=== PATIENT | male | born 1950 | race Caucasian/White ===

== ENCOUNTER 2017-04-14 13:34 | Emergency (ER) | payer OTHER ==
[2017-04-14 13:41] VITALS: BMI 30.7
--- NOTE | 2017-04-14 14:04 | PDOC ---
History of Present Illness - General Chief Complaint: Blood Pressure Problem Stated Complaint: BLOOD PRESSURE PROBLEM Time Seen by Provider: 04/14/17 14:03 - History of Present Illness Initial Comments: 67 year old male with NIDDM, HTN, and GERD presenting with frontal headache, weakness, and elevated blood pressure. States that his pressure was elevated all week to the 150s and he has been experiencing a pain in his eyes and front of his head. He hasn't changed any of his medications and his eye pressure/ pain has been chronic for years. He saw an opthalmologist and did not find any acute pathology. Denies visual symptoms, chest pain, fevers, chills, nausea vomiting, or diarrhea. His PCP is Dr. Phil Rodrigez. 04/14/17 17:04 Past History - Past Medical History Allergies/Adverse Reactions: Allergies Allergy/AdvReac Type Severity Reaction Status Date / Time No Known Allergies Allergy Verified 04/14/17 13:36 Home Medications: Ambulatory Orders Amlodipine Besylate [Norvasc -] 5 mg PO DAILY 09/09/13 Aspirin [ASA -] 81 mg PO DAILY #0 tab.chew 09/10/13 Atorvastatin Ca [Lipitor] 40 mg PO HS 01/25/15 Lisinopril [Prinivil] 20 mg PO DAILY 01/25/15 Metoprolol Succinate [Toprol XL -] 50 mg PO DAILY 01/25/15 Sitagliptin Phosphate [Januvia] 50 mg PO DAILY 01/25/15 Mirabegron [Myrbetriq] 25 mg PO DAILY 04/14/17 Omeprazole 40 mg PO DAILY 04/14/17 Oxybutynin Chloride 5 mg PO DAILY 04/14/17 Tamsulosin HCl [Flomax -] 0.4 mg PO BID 04/14/17 Anemia: No Asthma: No Cancer: No Cardiac Disorders: (chest pressure) CVA: No COPD: No CHF: No Dementia: No Diabetes: Yes GI Disorders: Yes (Acid reflux) Disorders: Yes (kidney stones/ BHP) HTN: Yes Hypercholesterolemia: Yes Kidney Stones: Yes Liver Disease: No Seizures: No Thyroid Disease: No - Surgical History Abdominal Surgery: No Appendectomy: No Cardiac Surgery: No Cholecystectomy: No Lung Surgery: No Neurologic Surgery: No Orthopedic Surgery: No - Immunization History Immunization Up to Date: Yes - Suicide/Smoking/Psychosocial Hx Smoking Status: No Smoking History: Never smoked Have you smoked in the past 12 months: No Number of Cigarettes Smoked Daily: 15 If you are a former smoker, when did you quit?: 20 years a Information on smoking cessation initiated: No Hx Alcohol Use: No Drug/Substance Use Hx: No Substance Use Type: None Hx Substance Use Treatment: No Review of Systems - Review of Systems Constitutional: No: Chills, Diaphoresis, Fever HEENTM: Yes: Eye Pain, Tearing. No: Blurred Vision, Recent change in vision, Double Vision Respiratory: No: Cough, Orthopnea, Shortness of Breath Cardiac (ROS): No: Chest Pain, Lightheadedness ABD/GI: No: Constipated, Nausea, Vomiting : No: Hematuria, Incontinence, Pain Musculoskeletal: No: Back Pain Integumentary: No: Change in Color, Erythema, Lesions Neurological: Yes: Headache *Physical Exam - Vital Signs Last Vital Signs Temp Pulse Resp BP Pulse Ox 98.2 F 95 H 16 163/93 95 04/14/17 13:37 04/14/17 13:37 04/14/17 13:37 04/14/17 13:37 04/14/17 13:37 - Physical Exam General Appearance: Yes: Nourished, Appropriately Dressed. No: Apparent Distress HEENT: positive: EOMI, KELLEN, Photophobia, Other (Tearing in his eyes bilaterally with some photosensitivity). negative: Normal ENT Inspection Neck: positive: Trachea midline, Normal Thyroid. negative: Tender Respiratory/Chest: positive: Lungs Clear, Normal Breath Sounds, Respiratory Distress. negative: Chest Tender, Accessory Muscle Use Cardiovascular: positive: Regular Rhythm, Regular Rate Gastrointestinal/Abdominal: positive: Normal Bowel Sounds, Flat, Soft. negative : Tender Extremity: positive: Normal Capillary Refill, Normal Inspection, Normal Range of Motion Integumentary: positive: Normal Color, Dry, Warm Neurologic: positive: cupola operator insulation II-XII NML intact, Fully Oriented, Alert, Normal Mood/ Affect, Normal Response, Motor Strength 5/5 ED Treatment Course - LABORATORY CBC & Chemistry Diagram: 04/14/17 16:10 04/14/17 16:10 Medical Decision Making - Medical Decision Making 67 year old male with complaints of headache and eye pain with pressures repeated in the 130s to 140s. Labs WNL. This is most likely related to some sort or primary opthalmologic pathology as opposed to HTN urgency/ emergency. Quite possibly some type of allergy as well. Will DC home with optho follow up. 04/14/17 17:12 04/14/17 17:19 *DC/Admit/Observation/Transfer Diagnosis at time of Disposition: Headache - Discharge Dispostion Disposition: HOME Condition at time of disposition: Improved Admit: No - Referrals Referrals: Phil Rodrigez [Primary Care Provider] - Loren Bailey MD [Staff Physician] - - Patient Instructions Printed Discharge Instructions: DI for High Blood Pressure, How to Monitor Your Blood Pressure at Home Additional Instructions: Te vieron por dolor en los ojos. Por favor, siga con el oftalmlogo en [place]. Print Language: BAHAMIAN
--- NOTE | 2017-04-14 14:23 | PDOC ---
Attending Attestation - Resident Resident Name: AmirahCarlosana - HPI HPI: 04/14/17 17:05 Pt presents to the ED complaining of chronic lightheadness and eye pain. PAtient has had all of these symptoms for several years. - Physicial Exam PE: 04/14/17 17:06 Agree with above exam. Patient is well appearing and in no acute distress. - Medical Decision Making 04/14/17 17:06 Pt presents to the ED with non specific chronic complaints. Labs checked to rule out electrolyte imbalance. Will discharge home.
[2017-04-14 16:15] LABS: BASOPHIL 0.7 % (0-2.0); EOSINOPHIL 1.1 % (0-4.5); MCH 28.5 pg (25.7-33.7); MEAN CELL VOLUME 86.4 fl (80-96); MEAN PLT VOLUME 9.1 fl (7.5-11.1); NEUTROPHILS 72.6 % (42.8-82.8); PLATELET COUNT 169 K/MM3 (134-434); RDW 14.8 % (11.9-15.9); WHITE BLOOD COUNT 7.7 K/mm3 (4.0-10.0)
[2017-04-14 16:41] LABS: ALBUMIN 4.1 g/dl (3.4-5.0); ALK PHOS 111 U/L (45-117); ANION GAP 2 (8-16); BILIRUBIN,TOTAL 0.7 mg/dL (0.2-1.0); CALCIUM 9.3 mg/dL (8.5-10.1); CO2 32 mmol/L (21-32); CREATININE 1.2 mg/dL (0.7-1.3); GLUCOSE,RANDOM 140 mg/dL (74-106); SGOT/AST 18 U/L (15-37); SGPT/ALT 32 U/L (12-78); TOT PROT 7.7 g/dl (6.4-8.2)
[2017-04-14 18:06] VITALS: BP 150/87; PULSE 78; TEMP 98.4
== END 2017-04-14 18:00 | disposition home or self-care (01) ==
LOC: JER 13:34
DX: R51 Headache (principal); I10 Essential (primary) hypertension; E11.9 Type 2 diabetes mellitus without complications; Z79.84 Long term (current) use of oral hypoglycemic drugs; E78.00 Pure hypercholesterolemia, unspecified; N40.0 Benign prostatic hyperplasia without lower urinary tract symptoms; Z87.442 Personal history of urinary calculi
CPT/HCPCS: 36415; 80053; 85025; 99282-25

== ENCOUNTER 2018-12-13 13:11 | Emergency (ER) | payer OTHER ==
[2018-12-13 13:25] VITALS: BP 142/91; PULSE 85; TEMP 98.5; BMI 29.5
[2018-12-13] MEDS ORDERED: KETOROLAC TROMETHAMINE 30 MG/1 ML VIAL IM ONE (14:03)
[2018-12-13] MEDS ORDERED: TAMSULOSIN HCL 0.4 MG CAP PO ONE (14:03)
[2018-12-13] MEDS ORDERED: KETOROLAC TROMETHAMINE 30 MG/1 ML VIAL ONE (14:08)
[2018-12-13] MEDS ORDERED: TAMSULOSIN HCL 0.4 MG CAP ONE (14:09)
--- NOTE | 2018-12-13 14:13 | PDOC ---
History of Present Illness - General Chief Complaint: Pain, Acute Stated Complaint: PAIN Time Seen by Provider: 12/13/18 13:27 - History of Present Illness Initial Comments: 12/13/18 14:02 CHIEF COMPLAINT: flank pain HISTORY OF PRESENT ILLNESS: 68 yo M recently diagnosed with asymptomatic kidney stones by urologist Juni presents to ED with pain to b/l flank. Patient states he has not been given any medications previously as he was not in pain at his urology appointment and was waiting to f/u with urology this Friday, but began to have flank pain yesterday and now feels nauseous. Pain is worse on R side than left. No recent travel or sick contacts. PAST MEDICAL HISTORY: Denies past medical history FAMILY HISTORY: Denies SOCIAL HISTORY: Denies tobacco, alcohol, illicit drug use. SURGICAL HISTORY: Denies ALLERGIES: No known drug allergies REVIEW OF SYSTEMS General/Constitutional: Denies fever or chills. Denies weakness, weight change. HEENT: Denies change in vision. Denies ear pain or discharge. Denies sore throat. Cardiovascular: Denies chest pain or shortness of breath. Respiratory: Denies cough, wheezing, or hemoptysis. Gastrointestinal: Mild nausea. Vomiting, diarrhea or constipation. Denies rectal bleeding. Genitourinary: B/l flank pain, R worse than left. Denies dysuria, frequency, or change in urination. Musculoskeletal: Denies joint or muscle swelling or pain. Denies neck or back pain. Skin: Denies rash or easy bruising. Neurologic: Denies headache, vertigo, loss of consciousness, or loss of sensation. PHYSICAL EXAM General Appearance: Well-appearing, appropriately dressed. No apparent distress , no intoxication. HEENT: EOMI, PERRLA, normal ENT inspection, normal voice, TMs normal, pharynx normal. No conjunctival pallor. No photophobia, scleral icterus. Neck: Supple. Trachea midline. No tenderness, rigidity, carotid bruit, stridor , lymphadenopathy, or thyromegaly. Respiratory/Chest: Lungs CTAB. No shortness of breath, chest tenderness, respiratory distress, accessory muscle use. No crackles, rales, rhonchi, stridor , wheezing, dullness Cardiovascular: RRR. S1, S2. No JVD, murmur, bradycardia, tachycardia. Vascular Pulses: Dorsalis-Pedis (R): 2+, Dorsalis-Pedis (L): 2+ Gastrointestinal/Abdominal: Normal bowel sounds. Abdomen soft, non-distended. No tenderness or rebound tenderness. No organomegaly, pulsatile mass, guarding , hernia, hepatomegaly, splenomegaly. Lymphatic: No adenopathy, tenderness. Musculoskeletal/Extremities: Normal inspection. FROM of all extremities, normal capillary refill. Pelvis Stable. No CVA tenderness. No tenderness to extremities, pedal edema, swelling, erythema or deformity. Integumentary: Appropriate color, dry, warm. No cyanosis, erythema, jaundice or rash Neurologic: reporter anchor II-XII intact. Fully oriented, alert. Appropriate mood/affect. Motor strength 5/5. No appreciable EOM palsy, facial droop or sensory deficit. 12/13/18 14:04 Past History - Past Medical History Allergies/Adverse Reactions: Allergies Allergy/AdvReac Type Severity Reaction Status Date / Time No Known Allergies Allergy Verified 12/13/18 13:21 Home Medications: Ambulatory Orders Amlodipine Besylate [Norvasc -] 5 mg PO DAILY 09/09/13 Aspirin [ASA -] 81 mg PO DAILY #0 tab.chew 09/10/13 Atorvastatin Ca [Lipitor] 40 mg PO HS 01/25/15 Lisinopril [Prinivil] 20 mg PO DAILY 01/25/15 Metoprolol Succinate [Toprol XL -] 50 mg PO DAILY 01/25/15 Sitagliptin Phosphate [Januvia] 50 mg PO DAILY 01/25/15 Mirabegron [Myrbetriq] 25 mg PO DAILY 04/14/17 Omeprazole 40 mg PO DAILY 04/14/17 Oxybutynin Chloride 5 mg PO DAILY 04/14/17 Ibuprofen 800 mg PO TID #30 tablet 05/17/17 Nitrofurantoin Macrocrystal [Nitrofurantoin] 100 mg PO BID 05/17/17 levoFLOXacin [Levaquin -] 500 mg PO DAILY #10 tablet 05/17/17 Ibuprofen 600 mg PO TID #20 tablet 12/13/18 Tamsulosin HCl [Flomax -] 0.4 mg PO DAILY #10 cap.er.24h 12/13/18 Anemia: No Asthma: No Cancer: No Cardiac Disorders: (chest pressure) CVA: No COPD: No CHF: No Dementia: No Diabetes: Yes GI Disorders: Yes (Acid reflux) Disorders: Yes (kidney stones/ BHP) HTN: Yes Hypercholesterolemia: Yes Kidney Stones: Yes Liver Disease: No Seizures: No Thyroid Disease: No - Surgical History Abdominal Surgery: No Appendectomy: No Cardiac Surgery: No Cholecystectomy: No Lung Surgery: No Neurologic Surgery: No Orthopedic Surgery: No - Immunization History Immunization Up to Date: Yes - Suicide/Smoking/Psychosocial Hx Smoking Status: No Smoking History: Former smoker Have you smoked in the past 12 months: No Number of Cigarettes Smoked Daily: 15 If you are a former smoker, when did you quit?: 20 years a Information on smoking cessation initiated: No Hx Alcohol Use: No Drug/Substance Use Hx: No Substance Use Type: None Hx Substance Use Treatment: No *Physical Exam - Vital Signs Last Vital Signs Temp Pulse Resp BP Pulse Ox 98.5 F 85 18 142/91 95 12/13/18 13:21 12/13/18 13:21 12/13/18 13:21 12/13/18 13:21 12/13/18 13:21 Medical Decision Making - Medical Decision Making 12/13/18 14:13 68 yo M recently diagnosed with asymptomatic kidney stones by urologist Stanley Savage presents to ED with pain to b/l flank. -Toradol IM -Flomax Advised patient to take medication as prescribed and follow up with Dr. Timothy Savage as scheduled this Friday . Advised patient of signs and symptoms for return to ED. Patient verbalized understanding and agrees to plan. *DC/Admit/Observation/Transfer Diagnosis at time of Disposition: Kidney stones - Discharge Dispostion Disposition: HOME Condition at time of disposition: Stable Decision to Admit order: No - Prescriptions Prescriptions: Ibuprofen 600 mg PO TID #20 tablet Tamsulosin HCl [Flomax -] 0.4 mg PO DAILY #10 cap.er.24h - Referrals Referrals: Frankie Alfredo MD [Staff Physician] - - Patient Instructions Printed Discharge Instructions: DI for Kidney Stones - Post Discharge Activity
== END 2018-12-13 14:46 | disposition home or self-care (01) ==
LOC: JERFT 13:11
PROC: 3E0233Z Introduction of Anti-inflammatory into Muscle, Percutaneous Approach (ICD-10-PCS; principal; 2018-12-13)
DX: N20.0 Calculus of kidney (principal); I10 Essential (primary) hypertension; E78.00 Pure hypercholesterolemia, unspecified; E11.9 Type 2 diabetes mellitus without complications; Z79.84 Long term (current) use of oral hypoglycemic drugs; K21.9 Gastro-esophageal reflux disease without esophagitis; N40.0 Benign prostatic hyperplasia without lower urinary tract symptoms
CPT/HCPCS: 96372; 99281-25

== ENCOUNTER 2018-12-28 07:08 | Day surgery (SDC) | payer OTHER | END 2018-12-28 11:00 | disposition home or self-care (01) | LOC: JASU-SURG 07:08 ==

== ENCOUNTER 2019-01-25 07:40 | Day surgery (SDC) | payer OTHER ==
[2019-01-22 16:01] VITALS: BMI 35.4
[2019-01-25] MEDS ORDERED: MIDAZOLAM HCL 2 MG/2 ML SINGLE DOSE VIAL ONE (10:00)
[2019-01-25] MEDS ORDERED: PROPOFOL 20 ML ONE (10:00)
[2019-01-25] MEDS ORDERED: KETOROLAC TROMETHAMINE 30 MG/1 ML VIAL ONE (10:15)
--- NOTE | 2019-01-25 10:26 | OP ---
Operative Note - Note: Operative Date: 01/25/19 Pre-Operative Diagnosis: Left renal stone Operation: Left ESWL Findings: 5 mm upper pole Right renal stone Post-Operative Diagnosis: Same as Pre-op Surgeon: Frankie Alfredo Anesthesia: Fractional Estimated Blood Loss (mls): 0 Operative Report Dictated: Yes
[2019-01-25 12:13] VITALS: BP 126/90; PULSE 60; TEMP 97.8
--- NOTE | 2019-01-26 08:39 | OP ---
DATE OF OPERATION: 01/25/2019 PREOPERATIVE DIAGNOSIS: Left renal stone. POSTOPERATIVE DIAGNOSIS: Left renal stone. PROCEDURE: Left extracorporeal shock wave lithotripsy. ATTENDING: Osito Stratton MD ANESTHESIA: Fractional. OPERATION WENT FOLLOWS: The patient was brought in the operating room, placed in the supine position on the operating room table. Ultrasonography and fluoroscopy were performed. A 5-mmm right upper pole stone was identified. At this point, anesthesia and preoperative antibiotics were administered. Shock wave lithotripsy was then performed. There were no complications noted. The patient tolerated the procedure very well. The disposition of the patient was to the recovery room. OSITO STRATTON M.D. [id number]
== END 2019-01-25 12:21 | disposition home or self-care (01) ==
LOC: JASU-SURG 07:40
PROVIDERS: ATTEND Urology
PROC: 0TF4XZZ Fragmentation in Left Kidney Pelvis, External Approach (ICD-10-PCS; principal; 2019-01-25 09:30)
DX: N20.0 Calculus of kidney (principal)
CPT/HCPCS: 82962

== ENCOUNTER 2020-06-28 14:38 | Observation (INO) | payer OTHER ==
[2020-06-28 14:43] VITALS: BMI 28.0
[2020-06-28] MEDS ORDERED: LACTATED RINGERS SOLUTION 1000 ML INFUS.BAG IV ONE (16:07)
[2020-06-28 17:46] LABS: BASO % 0.5 % (0-2.0); EOS % 0.3 % (0-4.5); HEMATOCRIT 48.6 % (35.4-49); HEMOGLOBIN 15.8 GM/dL (11.7-16.9); LYMPH % 13.1 % (8-40); MCH 28.9 pg (25.7-33.7); MCHC 32.5 g/dl (32.0-35.9); MEAN CELL VOLUME 88.9 fl (80-96); MEAN PLT VOLUME 9.5 fl (7.5-11.1); MONO % 3.8 % (3.8-10.2); NEUT % 82.3 % (42.8-82.8); PLATELET COUNT 164 K/MM3 (134-434); RBC 5.46 M/mm3 (4.00-5.60); RDW 14.9 % (11.9-15.9); WHITE BLOOD COUNT 6.8 K/mm3 (4.0-10.0)
[2020-06-28 18:04] LABS: CHLORIDE 103 mmol/L (98-107); POTASSIUM 4.1 mmol/L (3.5-5.1); SODIUM 139 mmol/L (136-145)
[2020-06-28 18:07] LABS: ALBUMIN 4.4 g/dl (3.4-5.0); ANION GAP 10 MMOL/L (8-16); BLOOD UREA NITROGEN 23.7 mg/dL (7-18); CO2 26 mmol/L (21-32); GLUCOSE,RANDOM 95 mg/dL (74-106); MAGNESIUM 2.3 mg/dL (1.8-2.4)
[2020-06-28 18:09] LABS: CREATININE 1.6 mg/dL (0.55-1.3)
[2020-06-28 18:10] LABS: PHOSPHOROUS 2.8 mg/dL (2.5-4.9); SGOT/AST 17 U/L (15-37); SGPT/ALT 29 U/L (13-61)
[2020-06-28 18:11] LABS: BILIRUBIN,TOTAL 0.8 mg/dL (0.2-1)
[2020-06-28 18:12] LABS: ALK PHOS 93 U/L (45-117)
[2020-06-28] MEDS ORDERED: SODIUM CHLORIDE 1,000 ML IV SCH (20:30)
[2020-06-28] MEDS ORDERED: ATORVASTATIN CA 40 MG TABLET (FP) ONE (21:45)
[2020-06-28] MEDS ORDERED: HEPARIN NA (PORCINE) 5,000 UNITS/ML 1ML VIAL ONE (21:46)
[2020-06-28] MEDS: SODIUM CHLORIDE 1,000 ML IV SCH (21:55)
[2020-06-28] MEDS: HEPARIN NA (PORCINE) 5,000 UNITS/ML 1ML VIAL SQ SCH (21:55)
[2020-06-28] MEDS: INSULIN SLIDING SCALE (NOVOLOG) 1 VIAL SQ SCH (21:56)
[2020-06-28] MEDS: ATORVASTATIN CA 40 MG TABLET (FP) PO SCH (21:56)
[2020-06-29 03:23] LABS: PH,URINE 6.5 (5.0-8.0); URINE APPEARANCE CLEAR; URINE BILIRUBIN NEGATIVE (NEGATIVE); URINE COLOR YELLOW; URINE GLUCOSE (UA) 3+ (NEGATIVE); URINE KETONE NEGATIVE (NEGATIVE); URINE LEUK ESTERASE NEGATIVE (NEGATIVE); URINE NITRITE NEGATIVE (NEGATIVE); URINE PROTEIN NEGATIVE (NEGATIVE); URINE UROBILINOGEN 0.2 mg/dL (0.2-1.0)
[2020-06-29] MEDS ORDERED: HEPARIN NA (PORCINE) 5,000 UNITS/ML 1ML VIAL ONE ×3 (06:17→21:55)
[2020-06-29] MEDS: HEPARIN NA (PORCINE) 5,000 UNITS/ML 1ML VIAL SQ SCH ×3 (06:26→22:07)
[2020-06-29 07:53] LABS: CHLORIDE 103 mmol/L (98-107); SODIUM 138 mmol/L (136-145)
[2020-06-29 07:55] LABS: ANION GAP 6 MMOL/L (8-16); BLOOD UREA NITROGEN 19.2 mg/dL (7-18); CALCIUM 9.1 mg/dL (8.5-10.1); CO2 29 mmol/L (21-32); HEMATOCRIT 44.7 % (35.4-49); HEMOGLOBIN 14.4 GM/dL (11.7-16.9); MCH 28.9 pg (25.7-33.7); MCHC 32.2 g/dl (32.0-35.9); MEAN CELL VOLUME 89.8 fl (80-96); MEAN PLT VOLUME 9.3 fl (7.5-11.1); PLATELET COUNT 144 K/MM3 (134-434); RBC 4.98 M/mm3 (4.00-5.60); RDW 14.3 % (11.9-15.9); WHITE BLOOD COUNT 5.6 K/mm3 (4.0-10.0)
[2020-06-29 07:56] LABS: GLUCOSE,RANDOM 100 mg/dL (74-106); MAGNESIUM 2.2 mg/dL (1.8-2.4)
[2020-06-29 07:59] LABS: CREATININE 1.4 mg/dL (0.55-1.3)
[2020-06-29] MEDS: INSULIN SLIDING SCALE (NOVOLOG) 1 VIAL SQ SCH ×4 (08:13→22:08)
[2020-06-29] MEDS ORDERED: TAMSULOSIN HCL 0.4 MG CAP ONE (09:11)
[2020-06-29] MEDS: TAMSULOSIN HCL 0.4 MG CAP PO SCH (09:12)
[2020-06-29] MEDS ORDERED: amLODIPine BESYLATE 5 MG TABLET (FP) ONE (09:15)
[2020-06-29] MEDS: OXYBUTYNIN CHLORIDE 5 MG TABLET PO SCH (09:19)
[2020-06-29] MEDS: amLODIPine BESYLATE 5 MG TABLET (FP) PO SCH (09:19)
[2020-06-29] MEDS ORDERED: INSULIN SLIDING SCALE (NOVOLOG) 1 VIAL SQ ONE (12:35)
[2020-06-29] MEDS: SODIUM CHLORIDE 1,000 ML IV SCH (20:17)
[2020-06-29] MEDS ORDERED: ATORVASTATIN CA 20 MG TABLET (FP) ONE ×2 (21:55→21:59)
[2020-06-29] MEDS: ATORVASTATIN CA 40 MG TABLET (FP) PO SCH (22:08)
[2020-06-30] MEDS: HEPARIN NA (PORCINE) 5,000 UNITS/ML 1ML VIAL SQ SCH ×3 (06:03→21:09)
[2020-06-30] MEDS: INSULIN SLIDING SCALE (NOVOLOG) 1 VIAL SQ SCH ×4 (06:03→21:01)
[2020-06-30] MEDS ORDERED: PT OWN MED DRAWER 7, Y5N ONE (11:20)
[2020-06-30] MEDS: amLODIPine BESYLATE 5 MG TABLET (FP) PO SCH (13:44)
[2020-06-30] MEDS: TAMSULOSIN HCL 0.4 MG CAP PO SCH (13:44)
[2020-06-30] MEDS: OXYBUTYNIN CHLORIDE 5 MG TABLET PO SCH (13:45)
[2020-06-30 17:44] LABS: CALCIUM 9.2 mg/dL (8.5-10.1)
[2020-06-30 17:46] LABS: CREATININE 1.3 mg/dL (0.55-1.3)
[2020-06-30] MEDS: ATORVASTATIN CA 40 MG TABLET (FP) PO SCH (21:09)
[2020-07-01] MEDS: HEPARIN NA (PORCINE) 5,000 UNITS/ML 1ML VIAL SQ SCH ×3 (07:11→21:49)
[2020-07-01] MEDS: INSULIN SLIDING SCALE (NOVOLOG) 1 VIAL SQ SCH ×4 (07:16→21:57)
[2020-07-01] MEDS: TAMSULOSIN HCL 0.4 MG CAP PO SCH (07:44)
[2020-07-01] MEDS: amLODIPine BESYLATE 5 MG TABLET (FP) PO SCH (09:23)
[2020-07-01] MEDS: OXYBUTYNIN CHLORIDE 5 MG TABLET PO SCH (09:23)
[2020-07-01] MEDS: metoPROLOL SUCCINATE 25 MG TAB.SR.24H (FP) PO SCH (11:03)
[2020-07-01] MEDS: ATORVASTATIN CA 40 MG TABLET (FP) PO SCH (21:49)
[2020-07-02] MEDS: HEPARIN NA (PORCINE) 5,000 UNITS/ML 1ML VIAL SQ SCH ×2 (06:26→15:00)
[2020-07-02] MEDS: INSULIN SLIDING SCALE (NOVOLOG) 1 VIAL SQ SCH ×2 (06:27→11:00)
[2020-07-02] MEDS ORDERED: PT OWN MED DRAWER 7, Y5N ONE (08:52)
[2020-07-02] MEDS: OXYBUTYNIN CHLORIDE 5 MG TABLET PO SCH (09:03)
[2020-07-02] MEDS: metoPROLOL SUCCINATE 25 MG TAB.SR.24H (FP) PO SCH (09:03)
[2020-07-02] MEDS: TAMSULOSIN HCL 0.4 MG CAP PO SCH (09:03)
[2020-07-02] MEDS: amLODIPine BESYLATE 5 MG TABLET (FP) PO SCH (09:03)
[2020-07-02 09:24] VITALS: BP 124/75; PULSE 77; TEMP 98.3
== END 2020-07-02 15:30 | disposition home or self-care (01) ==
LOC: JER 14:38 → JERBED 18:47 → J4S 06-30 00:59
PROVIDERS: ADMIT Internal Medicine; ATTEND Family Medicine
PROC: 3E0337Z Introduction of Electrolytic and Water Balance Substance into Peripheral Vein, Percutaneous Approach (ICD-10-PCS; principal; 2020-06-28)
DX: N17.9 Acute kidney failure, unspecified (principal); I10 Essential (primary) hypertension; I25.10 Atherosclerotic heart disease of native coronary artery without angina pectoris; I11.0 Hypertensive heart disease with heart failure; I50.30 Unspecified diastolic (congestive) heart failure; K21.9 Gastro-esophageal reflux disease without esophagitis; E11.9 Type 2 diabetes mellitus without complications; R01.1 Cardiac murmur, unspecified; R63.0 Anorexia; Z87.891 Personal history of nicotine dependence; R42 Dizziness and giddiness; N20.0 Calculus of kidney; N40.0 Benign prostatic hyperplasia without lower urinary tract symptoms
CPT/HCPCS: 36415; 70551-TC; 71046-TC-FY; 76775-TC; 78452-TC; 80048; 80053; 81003; 82550; 82607; 82962; 83036; 83735; 84100; 84436; 84443; 84479; 84484; 85025; 85027; 86593; 86780; 87077; 87086; 87186; 93005; 93010; 93017; 93306-TC; 93880-TC; 96360; 96361; 99285-25; A9502; C9803; G0378; J1644; U0003

== ENCOUNTER 2021-02-02 20:01 | Emergency (ER) | payer OTHER ==
[2021-02-02 20:10] VITALS: BP 152/87; PULSE 95; TEMP 98.9; BMI 26.6
[2021-02-02 21:47] LABS: BASO % 0.3 % (0-2.0); EOS % 0.8 % (0-4.5); HEMATOCRIT 38.4 % (35.4-49); HEMOGLOBIN 12.8 GM/dL (11.7-16.9); LYMPH % 13.5 % (8-40); MCH 29.4 pg (25.7-33.7); MCHC 33.4 g/dl (32.0-35.9); MEAN PLT VOLUME 8.7 fl (7.5-11.1); MONO % 7.6 % (3.8-10.2); NEUT % 77.8 % (42.8-82.8); PLATELET COUNT 178 10^3/uL (134-434); RBC 4.36 M/mm3 (4.00-5.60); RDW 14.4 % (11.9-15.9); WHITE BLOOD COUNT 9.9 K/mm3 (4.0-10.0)
[2021-02-02 21:54] LABS: EPI CELLS 3 /uL (0-25.1); HYALINE CASTS 3 /uL (0-3.1); PH,URINE 7.5 (5.0-8.0); URINE APPEARANCE TURBID; URINE BACTERIA 174 /uL (0-1359); URINE BILIRUBIN NEGATIVE (NEGATIVE); URINE COLOR RED; URINE GLUCOSE (UA) 3+ (NEGATIVE); URINE KETONE NEGATIVE (NEGATIVE); URINE LEUK ESTERASE 3+ (NEGATIVE); URINE NITRITE NEGATIVE (NEGATIVE); URINE PROTEIN 2+ (NEGATIVE); URINE UROBILINOGEN 0.2 mg/dL (0.2-1.0); URINE WBC 3549 /uL (0-25.8)
[2021-02-02 22:16] LABS: CALCIUM 8.6 mg/dL (8.5-10.1)
[2021-02-02 22:17] LABS: ALBUMIN 3.5 g/dl (3.4-5.0); BLOOD UREA NITROGEN 23.4 mg/dL (7-18)
[2021-02-02 22:20] LABS: CREATININE 1.5 mg/dL (0.55-1.3)
[2021-02-02 22:21] LABS: BILIRUBIN,TOTAL 0.5 mg/dL (0.2-1); TOT PROT 6.9 g/dl (6.4-8.2)
[2021-02-03 00:06] LABS: URINE RBC 13843.6 /uL (0-23.9)
[2021-02-03] MEDS ORDERED: CEFTRIAXONE 1 GM in DEXTROSE 5%-WATER - 50 ML IVPB ONE (01:11)
[2021-02-03] MEDS ORDERED: CEFTRIAXONE 1 GM/50 ML BAG ONE (01:21)
== END 2021-02-03 01:53 | disposition home or self-care (01) ==
LOC: JER 20:01
DX: N30.91 Cystitis, unspecified with hematuria (principal)
CPT/HCPCS: 36415; 74176-TC; 80053; 81003; 85025; 87086; 87186; 99284-25

== ENCOUNTER 2022-05-09 04:32 | Day surgery (SDC) | payer OTHER ==
[2022-05-07 14:59] VITALS: BMI 27.3
[2022-05-09 09:24] VITALS: TEMP 98
[2022-05-09 10:02] VITALS: BP 113/63; PULSE 63; RESP 17
== END 2022-05-09 10:16 | disposition home or self-care (01) ==
LOC: JASU-ENDO 04:32
PROVIDERS: ATTEND Internal Medicine Gastroenterology
PROC: 0DBC8ZX Excision of Ileocecal Valve, Via Natural or Artificial Opening Endoscopic, Diagnostic (ICD-10-PCS; principal; 2022-05-09 09:15)
DX: Z12.11 Encounter for screening for malignant neoplasm of colon (principal); K64.8 Other hemorrhoids; Z86.010 Personal history of colon polyps
CPT/HCPCS: 88305-TC

== ENCOUNTER 2022-06-15 11:51 | Emergency (ER) | payer OTHER ==
[2022-06-15 11:56] VITALS: BP 152/76; PULSE 84; RESP 18; TEMP 99.5; BMI 25.8
== END 2022-06-15 13:58 | disposition home or self-care (01) ==
LOC: JER 11:51
DX: J11.1 Influenza due to unidentified influenza virus with other respiratory manifestations (principal)
CPT/HCPCS: 0241U-QW; 99283-25

== ENCOUNTER 2022-09-06 14:58 | Emergency (ER) | payer OTHER ==
[2022-09-06 15:13] VITALS: TEMP 98; BMI 27.2
[2022-09-06 16:54] VITALS: RESP 18
[2022-09-06 16:57] VITALS: BP 133/82; PULSE 78
[2022-09-06 17:24] LABS: URINE APPEARANCE CLEAR; URINE BILIRUBIN NEGATIVE (NEGATIVE); URINE COLOR YELLOW; URINE GLUCOSE (UA) 3+ (NEGATIVE); URINE KETONE NEGATIVE (NEGATIVE); URINE LEUK ESTERASE NEGATIVE (NEGATIVE); URINE NITRITE NEGATIVE (NEGATIVE); URINE PROTEIN TRACE (NEGATIVE); URINE UROBILINOGEN 0.2 mg/dL (0.2-1.0)
[2022-09-06 17:39] LABS: BASO % 0.5 % (0-2.0); EOS % 1.5 % (0-4.5); HEMATOCRIT 45.9 % (35.4-49); HEMOGLOBIN 15.3 GM/dL (11.7-16.9); LYMPH % 17.8 % (8-40); MCH 29.6 pg (25.7-33.7); MCHC 33.4 g/dl (32.0-35.9); MEAN CELL VOLUME 88.5 fl (80-96); MONO % 5.7 % (3.8-10.2); NEUT % 74.5 % (42.8-82.8); PLATELET COUNT 149 10^3/uL (134-434); RBC 5.19 M/mm3 (4.00-5.60); RDW 14.6 % (11.9-15.9); WHITE BLOOD COUNT 6.4 K/mm3 (4.0-10.0)
[2022-09-06 17:48] LABS: INR 1.06 (0.83-1.09); PROTHROMBIN TIME (PATIENT) 12.3 SEC (9.7-13.0)
[2022-09-06 17:51] LABS: ACTIVATED PTT 28.3 SECONDS (25.2-36.5)
[2022-09-06 18:07] LABS: ALBUMIN 4.1 g/dl (3.4-5.0); CALCIUM 9.5 mg/dL (8.5-10.1)
[2022-09-06 18:08] LABS: BLOOD UREA NITROGEN 19.7 mg/dL (7-18); MAGNESIUM 2.1 mg/dL (1.8-2.4)
[2022-09-06 18:10] LABS: CREATININE 1.2 mg/dL (0.55-1.3)
[2022-09-06 18:12] LABS: BILIRUBIN,TOTAL 0.8 mg/dL (0.2-1); TOT PROT 7.8 g/dl (6.4-8.2)
[2022-09-06] MEDS ORDERED: SODIUM CHLORIDE 0.9% 500 ML INFUS.BAG IV ONE (18:17)
== END 2022-09-06 19:16 | disposition home or self-care (01) ==
LOC: JER 14:58
DX: R42 Dizziness and giddiness (principal)
CPT/HCPCS: 0241U-QW; 36415; 70450-TC; 71046-TC-FY; 80053; 81003; 82550; 83735; 84484; 85025; 85610; 85730; 87086; 87186; 93005; 93010; 99285-25

== ENCOUNTER 2024-05-20 12:22 | Emergency (ER) | payer OTHER ==
[2024-05-20 12:41] VITALS: TEMP 98.7; BMI 29.5
[2024-05-20 14:10] LABS: BASO % 0.5 % (0-2.0); EOS % 0.4 % (0-4.5); HEMATOCRIT 48.2 % (35.4-49); HEMOGLOBIN 15.4 GM/dL (11.7-16.9); LYMPH % 16.7 % (8-40); MCH 29.1 pg (25.7-33.7); MEAN CELL VOLUME 90.8 fl (80-96); MEAN PLT VOLUME 9.3 fl (7.5-11.1); MONO % 3.7 % (3.8-10.2); NEUT % 78.7 % (42.8-82.8); PLATELET COUNT 110 10^3/uL (134-434); RBC 5.31 M/mm3 (4.00-5.60); RDW 14.8 % (11.9-15.9); WHITE BLOOD COUNT 6.6 K/mm3 (4.0-10.0)
[2024-05-20 14:24] LABS: POTASSIUM 4.4 mmol/L (3.5-5.1)
[2024-05-20 14:25] LABS: CALCIUM 9.7 mg/dL (8.5-10.1)
[2024-05-20 14:27] LABS: ALBUMIN 3.9 g/dl (3.4-5.0); BLOOD UREA NITROGEN 18.4 mg/dL (7-18)
[2024-05-20 14:29] LABS: CREATININE 1.3 mg/dL (0.55-1.3)
[2024-05-20 14:32] LABS: TOT PROT 7.2 g/dl (6.4-8.2)
[2024-05-20 14:35] LABS: BILIRUBIN,TOTAL 0.9 mg/dL (0.2-1)
[2024-05-20 15:20] LABS: HIV INTERPRETATION NEGATIVE (NEGATIVE)
[2024-05-20 17:34] VITALS: BP 128/76; PULSE 68; RESP 18
== END 2024-05-20 17:34 | disposition home or self-care (01) ==
LOC: JER 12:22
DX: R07.89 Other chest pain (principal); R06.02 Shortness of breath; R42 Dizziness and giddiness; R53.83 Other fatigue
CPT/HCPCS: 36415; 71046-TC-FY; 80053; 84484; 85025; 86803; 87389; 93005; 93010; 99285-25